=== PATIENT | male | born 1975 | race Caucasian/White ===

== ENCOUNTER 2025-04-24 10:15 | Emergency (ER) | payer MEDICAID, SELFPAY ==
[2025-04-24 10:16] VITALS: BMI 32.1
--- NOTE | 2025-04-24 10:45 | EKG_ITS ---
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
--- NOTE | 2025-04-24 10:47 | PC.CC ---
Talat was notified by Nurse, Ezekiel that patient presented to the emergency department as voluntarily after ingesting approximately 28 Naproxen pills on Thursday and using a large amount of methamphetamine, per RN Ezekiel, patient is having suicidal ideation, with expressed desire not to live. At the time patient is pending medical clearance and mental health evaluation.
[2025-04-24 10:50] VITALS: BP 166/107; PULSE 87; RESP 18; TEMP 37.1; O2SAT 97
--- NOTE | 2025-04-24 11:00 | PC.NURSE ---
Poison control contacted.
[2025-04-24 11:26] LABS: Basophils # (Auto) 0.0 Thou/mm3 (0.0-0.2); Basophils % (Auto) 0 % (0-2.5); Eosinophils # (Auto) 0.1 Thou/mm3 (0.0-0.5); Eosinophils % (Auto) 1 % (0-10); Hematocrit 48.2 % (41.0-53.0); Hemoglobin 17.2 g/dL (13.5-16.0); Immature Granulocytes Auto 0.03 Thou/mm3 (0.00-0.00); Lymphocytes # (Auto) 2.3 Thou/mm3 (1.0-4.8); Lymphocytes % (Auto) 24 % (10-50); Mean Corpuscular HGB Conc 35.7 g/dl (31.0-37.0); Mean Corpuscular Hemoglobin 28.9 pg (25.0-35.0); Mean Corpuscular Volume 81 fL (80-100); Monocytes # (Auto) 0.8 Thou/mm3 (0.0-0.8); Monocytes % (Auto) 8 % (0-12); Neutrophils # (Auto) 6.5 Thou/mm3 (1.8-7.7); Neutrophils % (Auto) 67 % (37-80); Nucleated Red Blood Cell # 0.00 Thou/mm3 (0.00-0.00); Nucleated Red Blood Cell % 0 /100 WBC (0); Platelet Count 317 Thou/mm3 (140-440); RDW Standard Deviation 36.3 fL (35.1-43.9); Red Blood Count 5.96 Miln/mm3 (4.50-5.90); White Blood Count 9.6 Thou/mm3 (3.8-10.6)
--- NOTE | 2025-04-24 11:26 | EDNOTE_ITS ---
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 Patient states 3 days ago I was tired of living and had looked up how to kill himself. States online it was recommended to overdose on pain medications and states he took 28 pills of Naproxen. Reports he had some abdominal pain though no other symptoms reported. 2 days ago Thursday states he bought sleeping pills with attempts to overdose. However, states he spoke with his son and hesitated. Later that night drank two bottles of Urbano Childers's whiskey and used methamphetamine given to him by a friend (amount unknown). States yesterday he had several episode of vomiting and today has some abdominal discomfort, though no other symptoms reported. States this morning he made his mom aware of what he was feeling and was brought here for further evaluation. Patient mentioned he has had a lot going on in his life. States he previously was on Wellbutrin 450mg while living in [place]. However, since quitting his job and moving back to [place] several months ago, he lost his insurance and stopped taking the Wellbutrin cold turkey . Also reports he stopped taking Ozempic for the HANSEL 8 months ago. Patient reports he was a former alcoholic and has not had any alcohol for 10 years. Related Data Allergies Allergy/AdvReac Type Severity Reaction Status Date / Time No Known Allergies Allergy Verified 04/24/25 13:08 Review of Systems Review of Systems Systems Reviewed: All systems reviewed, normal except as documented Past Medical History Past Medical History CARDIAC: Negative Congestive Heart Failure RESPIRATORY: Positive Sleep Apnea GENITOURINARY: Negative Renal Disease ENDOCRINE: Positive Diabetes Mellitus Type 2 (Latent Autoimmune Diabetes in Adults) PSYCHO/SOCIAL: Positive Recreational Drug Use, Depression and Anxiety Social History SMOKING STATUS: Current some day smoker ED Exam General Limitations: Present no limitations General appearance: Present alert and other (tearful ) Head Head exam: Present atraumatic, normocephalic and normal inspection Eye Eye exam: Present normal appearance, PERRL and EOMI ENT ENT exam: Present normal exam, normal oropharynx and mucous membranes moist Neck Neck exam: Present normal inspection, full ROM and trachea midline Chest Chest inspection: Present normal inspection and symmetric chest wall rise Respiratory Respiratory exam: Present normal lung sounds bilaterally Cardiovascular Cardiovascular exam: Present regular rate, normal rhythm and normal heart sounds Abdominal Exam Abdominal exam: Present soft and normal bowel sounds Extremities Exam Extremities exam: Present normal inspection and full ROM Back Exam Back exam: Present normal inspection and full ROM Neurological Exam Neurological exam: Present alert, oriented X3 and CN II-XII intact Psychiatric Psychiatric exam: Present other (tearful ) Skin Skin exam: Present warm, dry, intact and normal color Course Quality Measures none Orders Category Date Time Status EKG (ED ONLY) *Do not use* NOW Care 04/24/25 10:45 Completed One-to-one observation NOW Care 04/24/25 10:26 Active Suicide precautions NOW Care 04/24/25 10:26 Active EKG (ED Only) Stat Exams 04/24/25 10:45 Draft Acetaminophen Stat Lab 04/24/25 11:04 Completed Alcohol, Blood Medical Stat Lab 04/24/25 11:04 Completed CBC Stat Lab 04/24/25 11:04 Completed Comprehensive Metabolic Panel Stat Lab 04/24/25 11:04 Completed Creatine Kinase Stat Lab 04/24/25 11:04 Completed Drug Screen,Urine Stat Lab 04/24/25 11:47 Completed Salicylate Stat Lab 04/24/25 11:04 Completed BuPROPion HCL XL [Wellbutrin XL] Med 04/24/25 15:00 Discontinued 300 mg PO X1 ONE BusPIRone HCL [Buspar] Med 04/24/25 21:00 Active 10 mg PO BID Gabapentin [Neurontin] Med 04/24/25 15:11 Discontinued 300 mg PO X1 ONE metFORMIN [Glucophage] Med 04/24/25 17:00 Active 750 mg PO BIDAC Referral [facility] Sorter NOW 04/24/25 10:27 Active Vital Signs Vital signs: Vital Signs Temperature 98.7 F 04/24/25 10:50 Pulse Rate 87 04/24/25 10:50 Respiratory Rate 18 04/24/25 10:50 Blood Pressure 166/107 H 04/24/25 10:50 Pulse Oximetry (%) 97 04/24/25 10:50 Oxygen Delivery Method Room Air 04/24/25 10:50 Pulse ox is 97% on room air which is adequate. Psych MDM Narrative MDM Narrative:: I, Devi Regalado, am scribing for and in the presence of Dr. Lopez. Patient has been medically cleared for mental health evaluation. 1440: The patient has been evaluated by social and political studies professor and placed the patient on a 5150 hold. At this time pending [facility] facility placement. The patient has been accepted by Dr. White at [facility]. EMS p/u time to be arranged some time today. Patient data External records reviewed:: [facility] previous records Clinical information provided by:: patient Social determinants that could affect healthcare access:: mental health Patient has the following chronic illnesses:: Anxiety, depression, HANSEL How is presenting disease/condition affected by chronic disease/condition?: exacerbated by Evaluation data The following diagnostics were reviewed and interpreted by me:: lab results and EKG tracing(s) Lab and/or radiology exams considered but not ordered:: None Interpretation Summary: UDS positive for meth and marijuana, alcohol urine level is 38.3 EKG @ 11:13 AM, interpreted by me, sinus rhythm, rate 88, no STEMI. Medications / Prescriptions Medications or Prescriptions considered but not ordered:: None Medication administrations:: Medication Administration History Buspirone HCl (Buspirone Hcl 5 Mg Tablet) 10 mg PO BID [facility] Stop: 05/24/25 20:59 Metformin HCl (Metformin 500 Mg Tablet) 750 mg PO BIDAC [facility] Stop: 05/24/25 16:59 Discontinued Medications Bupropion HCl (Bupropion Hcl Xl 150 Mg Tabcr) 300 mg PO X1 ONE Stop: 04/24/25 15:01 Last Admin: 04/24/25 15:25 Dose: 300 mg Documented By: DUNG Gabapentin (Gabapentin 300 Mg Capsule) 300 mg PO X1 ONE Stop: 04/24/25 15:12 Last Admin: 04/24/25 15:23 Dose: 300 mg Documented By: DUNG See above Consultations Consultation(s) initiated? (list below): No Diagnosis Psych Differential Diagnosis: acute psychosis Most likely diagnosis given after review of the tests above:: Suicidal ideation Depression Admission Indicated Admission indicated?: not indicated Explain why admission is indicated or not indicated:: Txfer to [facility] facility Admission Request Was there a request for admission?: No Disposition Plan Disposition Plan: Transfer Discharge Plan Plan [facility] Prescriptions/Referrals Referrals: No Primary/Family,Physician [Primary Care Provider] - In 1 week Problem List Clinical Impression: Suicidal ideation, Depression Patient/Caregiver Discharge Instructions Print Language: Botswanan Stand Alone Forms: Rehana Award Info., Patient Portal Info Letter
[2025-04-24 12:22] LABS: Acetaminophen < 2.0 mcg/mL (10.0-20.0); Alcohol, Blood Medical 38.3 mg/dL (0-10.0); Anion Gap 18 (7-16); BUN/Creatinine Ratio 11 Ratio (12-20); Blood Urea Nitrogen 12 mg/dL (9-23); Calcium 9.9 mg/dL (8.3-10.6); Carbon Dioxide 16.4 mMol/L (20.0-31.0); Chloride 103 mMol/L (98-107); Creatine Kinase 275 U/L (34-171); Creatinine (Component) 1.1 mg/dL (0.6-1.3); Estimated Creatinine Clearance 110.0 mL/min (>60); Glucose 234 mg/dL (74-106); Osmolality,Calculated 281 (275-295); Potassium 4.0 mMol/L (3.4-5.1); Salicylate < 3.0 mg/dL; Sodium 137 mMol/L (136-145); eGFR > 60 See Note
[2025-04-24 12:28] LABS: Amphetamine/Methamp Scrn,U Positive (Negative); Barbiturate Screen,Urine Negative (Negative); Benzodiazepines Screen,Urine Negative (Negative); Benzoylecgonine Screen, Ur Negative (Negative); Fentanyl Screen,Urine Negative (Negative); Opiate Screen,Urine Negative (Negative); THC Screen,Urine Positive (Negative)
[2025-04-24 12:34] LABS: Alanine Aminotransferase 54 U/L (10-49); Albumin, Serum 5.2 gm/dL (3.5-5.0); Albumin/Globulin Ratio 1.9 (1.2-2.2); Alkaline Phosphatase 77 U/L (46-116); Aspartate Amino Transferase 34 U/L (0-34); Bilirubin,Total 1.2 mg/dL (0.3-1.2); Calcium (Corrected) 9.9 mg/dL (8.5-10.1); Globulin 2.7 gm/dL (2.3-3.5); Total Protein 7.9 gm/dL (5.7-8.2)
--- NOTE | 2025-04-24 13:00 | PC.NURSE ---
SS worker at bedside for eval.
[2025-04-24 13:35] VITALS: BP 162/112; BP 168/123; PULSE 90; RESP 18; TEMP 37.1; O2SAT 98
--- NOTE | 2025-04-24 15:10 | PC.CC ---
Mike Mccray is a 50-year-old, male who was brought in by his mother, due to concerns for danger to self. Susana JARAMILLO met with patient [id number] at bedside. Confidentiality and the purpose of the visit were ?explained. Patient was able to verify demographic information, date of and able to verify reason for visit. During the assessment, the patient appeared depressed, with poor eye contact and flat affect. Patient has a specific plan with the intent to overdose on medication, when Talat asked what medication; patient reported he would overdose on hydroxyzine. Patient denies any auditory or visual hallucinations. Patient reports he has been staying with his sister since last night. Patient reports he was living in [place] and moved to [place] in February 2025, which led to running out of his medication and not following up with a PCP. Patient denies following up with psychiatrist or mental health therapist. Patient also reports he is a recovered alcoholic and did drink on Thursday. Patient also reports he was admitted to [facility] about five years ago and was diagnosed with anxiety and depression. Patient reports active suicidal ideations he expressed that he does not want to live anymore and stated that if released, he would find a way to end his life by overdosing on pills. He reported that he took 28 pills of naproxen on 04/21/25. Patient also shared that he and his recently and his 13-Year-old daughter returned to live with mother. He described his daughter as ?my everything.? Patient also reported he lost his job about a week ago. Patient reported that due to these life stressors he has been having thoughts of how to end his life. Case referred to Luanne MCNEIL.
--- NOTE | 2025-04-24 15:11 | PC.CC ---
Follow up note; Susana JARAMILLO sent out packet to all LPS facilities.
[2025-04-24] MEDS: GABAPENTIN 300 MG CAPSULE PO (15:23)
[2025-04-24] MEDS: BuPROPion HCL XL 150 MG TABCR 300 MG PO (15:25)
[2025-04-24 16:26] VITALS: BP 155/98; PULSE 86; RESP 17; TEMP 36.9; O2SAT 98
--- NOTE | 2025-04-24 16:53 | PC.NURSE ---
CALL FROM SARAH WITH [facility]. PT ACCEPTED TO [facility] BY DR. FAULKNER, UNIT #[id number]. FACILITY REQUESTING [address]AL, 21:30 END MAKER. FACILITY STATED CPAP MACHINE TO BE BROUGHT BY PT IS REQUIRED. NO NURSE TO NURSE REPORT NEEDED. REQUESTING CALL WITH ETA TO PHONE NUMBER [phone].
--- NOTE | 2025-04-24 17:02 | PC.NURSE ---
CALL FROM POISON CONTROL. POISON CONTROL UPDATED ON PTS CONDITION. PER POISON CONTROL CASED CLOSED AT THIS TIME.
[2025-04-24 18:34] VITALS: BP 154/89; PULSE 84; RESP 18; TEMP 36.9; O2SAT 98
--- NOTE | 2025-04-24 19:15 | PC.CC ---
04/24/25 1430- Late entry: Mike Mccray is a 50 year old male who presented to the ED with the c/o suicidal ideation. Mental health evaluation was requested by . TARUN and Susana JARAMILLO met with the patient; role and reason was explained to the patient. Patient had admitted to ingesting 28 pills on Thursday with the intention of ending his life. Patient reports that he was residing with his , but now is residing with his sister. Patient reports that he continues to have suicidal ideation with a plan; ingesting pills. During the contact patient had a flat affect, however was engaging and cooperative. Patient admits to previous psychiatric placement in the past. Patient reports that he has been diagnosed with diabetes but does not follow up with a PCP or is taking medication. Patient reports he previously lived in [place] and has been having insurance barriers. At this time patent is not able to formulate a viable safety plan. Patient meets 5150 criteria; danger to self. Patient admits to ingesting 28 pills without seeking help at the time of ingestion. Patient continues to have suicidal ideation with a plan. Advisement was completed with the patient. Patient was given the mental health rights booklet. Discussed with the patient the importance of following up with a PCP for his diabetes diagnosis. Patient reports he has talked with his family, he has declined for social service to make contact with family. KIRSTIE Falcon was made aware of patient's diabetes diagnosis and non-compliance with medication. RN to follow up with .
--- NOTE | 2025-04-24 19:18 | PC.NURSE ---
SEVERAL ATTEMPTS HAVE BEEN MADE TO FAX REQUEST FOR TRANSFER TO [place]. DISPATCH STATES THEY HAVE NOT RECEIVED THE FAX. CHARGE NURSE NOTIFIED.
[2025-04-24 20:08] VITALS: BP 153/96; PULSE 104; RESP 18; TEMP 36.8; O2SAT 97
== END 2025-04-24 20:27 ==
PROVIDERS: Emergency Provider Family Medicine
DX: Z04.6 Encounter for general psychiatric examination, requested by authority (principal); R45.851 Suicidal ideations; F32.A Depression, unspecified; R94.31 Abnormal electrocardiogram [ECG] [EKG]; Z75.1 Person awaiting admission to adequate facility elsewhere
CPT/HCPCS: 36415; 80048; 80053; 80307; 80320; 80329; 82550; 85025; 93005; 96127; 99284; A9270; G0480